=== PATIENT | female | born 1935 | race Caucasian/White ===

== ENCOUNTER 2016-08-19 14:20 | Outpatient (CLI) | payer MEDICARE, BC ==
[2016-08-19 14:35] VITALS: BP 134/81
[2016-08-19] MEDS ORDERED: GABAPENTIN300 MG ORAL (15:24)
[2016-08-19] MEDS ORDERED: HYDROCHLOROTHIA25 MG ORAL (15:24)
[2016-08-19] MEDS ORDERED: IRON325 M1 PO (15:24)
[2016-08-19] MEDS ORDERED: CELEBREX200 MG ORAL (15:24)
--- NOTE | 2016-08-19 15:30 | GI Initial Consult Note ---
History of Present Illness General Date patient seen: August 19, 2016 Time patient seen: 14:30 Referring physician: ANGEL Reason for Consultation: DILATED PANCREATIC DUCT Present Illness HPI 80 year old female patient referred by Dr. Mims for evaluation of severely dilated pancreatic duct in the distal body and tail as seen by abdominal MRI on 08/04/16. The patient presents today with no general GI symptoms at this time. She previously had N/V in July in which she visited the ER at [facility]. Home Meds Reported Medications Celecoxib* (CELEBREX*) 200 Mg Capsule, 200 MG ORAL DAILY, CAP 08/19/16 Ferrous Sulfate (IRON) Unknown Strength Tablet, PO, TAB 08/19/16 Hydrochlorothiazide* (HYDROCHLOROTHIAZIDE*) 25 Mg Tablet, 25 MG ORAL DAILY, TAB 08/19/16 Gabapentin* (GABAPENTIN*) 300 Mg Capsule, 300 MG ORAL BEDTIME, CAP 08/19/16 Med list reviewed/reconciled: Yes Allergies: Coded Allergies: No Known Allergies (Unverified , 08/19/16) Patient History History Provided By: Patient, Medical Record PMH Narrative Hx of kidney stone anemia HTN arthritis PSHx Hysterectomy Left Kidney stone removal Family History Narrative N/A Social History: Reports: other - caffeine daily Review of Systems All Other Systems: negative except mentioned in HPI Physical Exam T 97.6 BP 134/81 P 101 98 RA HT 4'7 WT 130 General Appearance: no apparent distress, alert Head: normocephalic EENT: normal ENT inspection Neck: supple Respiratory: normal breath sounds, no respiratory distress Cardiovascular: normal rate, tachycardia Gastrointestinal: normal inspection, non tender, soft Rectal: deferred Genitourinary: no CVA tenderness Musculoskeletal: other - unsteady gait Neurologic: alert, oriented x3, responsive Psychiatric: normal inspection Skin: normal inspection, normal color, no rash Lymphatic: normal inspection GI: Plan Problems: (1) Encounter for diagnostic endoscopy (2) Pancreatic duct dilated (3) Gallstones (4) Anemia (5) HTN (hypertension) (6) Arthritis Plan MRI abdomen reviewed >> severely dilated PD. Gallstones. Ventral abdominal fat -containing hernias. EGD/EUS scheduled this 08/26/16. RTC to schedule colonoscopy. Seen with Dr. Franks. Thank you for referring this patient, we will follow. Leonela Castano N.P. August 19, 2016 15:30
== END 2016-08-19 14:50 | disposition home or self-care (01) ==
LOC: PAN 14:20
DX: K80.80 Other cholelithiasis without obstruction (principal); D64.9 Anemia, unspecified; I10 Essential (primary) hypertension; M19.90 Unspecified osteoarthritis, unspecified site; K86.89 Other specified diseases of pancreas; Z87.442 Personal history of urinary calculi; Z90.710 Acquired absence of both cervix and uterus
CPT/HCPCS: 99201

== ENCOUNTER 2016-09-04 07:04 | Day surgery (SDC) | payer MEDICARE, BC ==
[~2016-09-04] VITALS: Ht 152.4 cm; Wt 59.0 kg
[2016-09-04] VITALS (8 sets, daily range): BP systolic 91–122; BP diastolic 49–73
[~2016-09-04 07:04] MED LIST: CELEBREX200 MG ORAL; GABAPENTIN300 MG ORAL; HYDROCHLOROTHIA25 MG ORAL; IRON325 M1 PO; LATANOPROST2.5 ML BOTH EYES
[2016-09-04 08:40] LABS: LYMPHOCYTES % (AUTO) 14.1 % (20.0-45.0); MEAN CORPUSCULAR HEMOGLOBIN 31.2 PG (27.0-31.0); MEAN CORPUSCULAR HGB CONC 34.2 G/DL (32.0-36.0); MEAN CORPUSCULAR VOLUME 91 FL (80-99); MEAN PLATELET VOLUME 6.3 FL (6.5-10.1); MONOCYTES % (AUTO) 9.1 % (1.0-10.0); NEUTROPHILS % (AUTO) 72.8 % (45.0-75.0); PLATELET COUNT 239 K/UL (150-450); RED BLOOD COUNT 3.78 M/UL (4.20-5.40); RED CELL DISTRIBUTION WIDTH 11.5 % (11.6-14.8); WHITE BLOOD COUNT 13.2 K/UL (4.8-10.8)
[2016-09-04 08:50] LABS: INR 1.1 (0.9-1.1); PROTHROMBIN TIME 11.1 SEC (9.30-11.50)
[2016-09-04 08:54] LABS: ALANINE AMINOTRANSFERASE 11 U/L (3-33); AMYLASE 110 U/L (10-110); ANION GAP 14 (5-15); ASPARTATE AMINO TRANSFERASE 23 U/L (5-40); CALCIUM 9.6 mg/dL (8.6-10.2); CARBON DIOXIDE 27 mEQ/L (20-30); CHLORIDE 98 mEQ/L (98-107); CREATININE 1.4 mg/dL (0.5-0.9); HEMOLYSIS 42; LIPASE 87 U/L (< 60); POTASSIUM 3.8 mEQ/L (3.4-4.9); SODIUM 139 mEQ/L (135-145); TOTAL PROTEIN 7.1 g/dL (6.6-8.7)
--- NOTE | 2016-09-04 09:06 | Pre-Procedure Note/Attestation ---
Pre-Procedure Note/Attestation Complete Prior to Procedure Planned Procedure: not applicable Procedure Narrative: eus Indications for Procedure Pre-Operative Diagnosis: pancreatic cyst Attestation I attest that I discussed the nature of the procedure; its benefits; risks and complications; and alternatives (and the risks and benefits of such alternatives ), prior to the procedure, with the patient (or the patient's legal computer help desk representative). I attest that, if there was a reasonable possibility of needing a blood transfusion, the patient (or the patient's legal computer help desk representative) was given the [facility] standardized written summary, pursuant to the Pedro Donnell Blood Safety Act ([place] Health and Safety Code # 1645, as amended). I attest that I re-evaluated the patient just prior to the surgery and that there has been no change in the patient's H&P, except as documented below: ARACELI HADDAD September 04, 2016 09:06
--- NOTE | 2016-09-04 09:07 | Short Stay Surgery H&P ---
History of Present Illness History of Present Illness Chief Complaint see recent consult note HPI Kyle Jin is a 80 year old female who was admitted on for Dilated Pancreatic Duct Patient History Allergies: Coded Allergies: No Known Allergies (Unverified , 08/19/16) PAST MEDICAL HISTORY: Past Surgeries: Social History: Medication History Scheduled Celecoxib* (Celebrex*), 200 MG ORAL DAILY, (Reported) Ferrous Sulfate (Iron), 325 MG PO NEEDED, (Reported) Gabapentin* (Gabapentin*), 300 MG ORAL BEDTIME, (Reported) Hydrochlorothiazide* (Hydrochlorothiazide*), 25 MG ORAL DAILY, (Reported) Latanoprost* (Xalatan*), 1 DROP BOTH EYES BEDTIME, (Reported) Physical Exam Vital Signs Last Vital Signs Date Time Temp Pulse Resp B/P Pulse Ox O2 Delivery O2 Flow Rate FiO2 09/04/16 07:53 98.9 98 18 122/73 99 Room Air Labs Laboratory Tests Test 09/04/16 08:11 White Blood Count 13.2 K/UL (4.8-10.8) H Red Blood Count 3.78 M/UL (4.20-5.40) L Hemoglobin 11.8 G/DL (12.0-16.0) L Hematocrit 34.5 % (37.0-47.0) L Mean Corpuscular Volume 91 FL (80-99) Mean Corpuscular Hemoglobin 31.2 PG (27.0-31.0) H Mean Corpuscular Hemoglobin Concent 34.2 G/DL (32.0-36.0) Red Cell Distribution Width 11.5 % (11.6-14.8) L Platelet Count 239 K/UL (150-450) Mean Platelet Volume 6.3 FL (6.5-10.1) L Neutrophils (%) (Auto) 72.8 % (45.0-75.0) Lymphocytes (%) (Auto) 14.1 % (20.0-45.0) L Monocytes (%) (Auto) 9.1 % (1.0-10.0) Eosinophils (%) (Auto) 3.0 % (0.0-3.0) Basophils (%) (Auto) 1.0 % (0.0-2.0) Prothrombin Time 11.1 SEC (9.30-11.50) Prothromb Time International Ratio 1.1 (0.9-1.1) Activated Partial Thromboplast Time 28 SEC (23-33) Sodium Level 139 mEQ/L (135-145) Potassium Level 3.8 mEQ/L (3.4-4.9) Chloride Level 98 mEQ/L (98-107) Carbon Dioxide Level 27 mEQ/L (20-30) Anion Gap 14 (5-15) Blood Urea Nitrogen 28 mg/dL (7-23) H Creatinine 1.4 mg/dL (0.5-0.9) H Estimat Glomerular Filtration Rate mL/min (>60) Glucose Level 100 mg/dL (74-106) Calcium Level 9.6 mg/dL (8.6-10.2) Total Bilirubin 0.3 mg/dL (0.0-1.2) Aspartate Amino Transf (AST/SGOT) 23 U/L (5-40) Alanine Aminotransferase (ALT/SGPT) 11 U/L (3-33) Alkaline Phosphatase 71 U/L (35-104) Total Protein 7.1 g/dL (6.6-8.7) Albumin 3.6 g/dL (3.5-5.2) Globulin 3.5 g/dL Albumin/Globulin Ratio 1.0 (1.0-2.7) Amylase Level 110 U/L (10-110) Lipase 87 U/L (< 60) H Carcinoembryonic Antigen Pending CA 19-9 Antigen 19.03 U/mL (< 37) Plan Attestation Are the patient's medical conditions optimized for surgery? ARACELI HADDAD September 04, 2016 09:07
[2016-09-04] MEDS ORDERED: LR 1000ml ONE (09:20)
[2016-09-04] MEDS ORDERED: Propofol 10mg/ml 20ml IV ONE (09:20)
[2016-09-04] MEDS ORDERED: LR 1000ml 1,000 ML IVLG SCH (09:41)
[2016-09-04] MEDS ORDERED: fentaNYL 100 mcg/2 mL IV PRN (09:45)
[2016-09-04] MEDS ORDERED: LR 1000ml 1,000 ML IV SCH (09:45)
--- NOTE | 2016-09-04 09:45 | Anethesia Preoperative Eval ---
Anesthesia Pre-op PMH/ROS General Date of Evaluation: September 04, 2016 Time of Evaluation: 09:10 Anesthesiologist: Sophie ASA Score: ASA 3 Mallampati Score Class I : Soft palate, uvula, fauces, pillars visible Class II: Soft palate, uvula, fauces visible Class III: Soft palate, base of uvula visible Class IV: Only hard plate visible Mallampati Classification: Class II Surgeon: Tiny Diagnosis: Dilated pancreatic duct Surgical Procedure: EGD, EUS Family History: no anesthesia problems Allergies: Coded Allergies: No Known Allergies (Unverified , 08/19/16) Past Medical History Cardiovascular: Reports: HTN Pulmonary: Denies: COPD, RENNY, asthma, other Gastrointestinal/Genitourinary: Denies: CRI, ESRD, GERD, other Neurologic/Psychiatric: Denies: CVA, TIA, dementia, depression/anxiety, other Endocrine: Denies: DM, hypothyroidism, other, steroids HEENT: Reports: cataract (L), cataract (R) Hematology/Immune: Denies: DVT, anemia, bleeding disorder, other Musculoskeletal/Integumentary: Reports: OA PMH Narrative: HTN, OA PSxH Narrative: Knee and hip surgery, ADIS, b/l cataract Anesthesia Pre-op Phys. Exam Physician Exam Last Vital Signs Date Time Temp Pulse Resp B/P Pulse Ox O2 Delivery O2 Flow Rate FiO2 09/04/16 07:53 98.9 98 18 122/73 99 Room Air Constitutional: NAD Neurologic: CN 2-12 intact Cardiovascular: RRR, no M/R/G Respiratory: CTA Gastrointestinal: S/NT/ND Airway Exam Mallampati Score: Class II MO: full ROM: full Teeth: intact Anesthesia Pre-op A/P Labs Hematology Test 09/04/16 08:11 White Blood Count 13.2 K/UL (4.8-10.8) H Red Blood Count 3.78 M/UL (4.20-5.40) L Hemoglobin 11.8 G/DL (12.0-16.0) L Hematocrit 34.5 % (37.0-47.0) L Mean Corpuscular Volume 91 FL (80-99) Mean Corpuscular Hemoglobin 31.2 PG (27.0-31.0) H Mean Corpuscular Hemoglobin Concent 34.2 G/DL (32.0-36.0) Red Cell Distribution Width 11.5 % (11.6-14.8) L Platelet Count 239 K/UL (150-450) Mean Platelet Volume 6.3 FL (6.5-10.1) L Neutrophils (%) (Auto) 72.8 % (45.0-75.0) Lymphocytes (%) (Auto) 14.1 % (20.0-45.0) L Monocytes (%) (Auto) 9.1 % (1.0-10.0) Eosinophils (%) (Auto) 3.0 % (0.0-3.0) Basophils (%) (Auto) 1.0 % (0.0-2.0) Coagulation Test 09/04/16 08:11 Prothrombin Time 11.1 SEC (9.30-11.50) Prothromb Time International Ratio 1.1 (0.9-1.1) Activated Partial Thromboplast Time 28 SEC (23-33) Chemistry Test 09/04/16 08:11 Sodium Level 139 mEQ/L (135-145) Potassium Level 3.8 mEQ/L (3.4-4.9) Chloride Level 98 mEQ/L (98-107) Carbon Dioxide Level 27 mEQ/L (20-30) Anion Gap 14 (5-15) Blood Urea Nitrogen 28 mg/dL (7-23) H Creatinine 1.4 mg/dL (0.5-0.9) H Estimat Glomerular Filtration Rate mL/min (>60) Glucose Level 100 mg/dL (74-106) Calcium Level 9.6 mg/dL (8.6-10.2) Total Bilirubin 0.3 mg/dL (0.0-1.2) Aspartate Amino Transf (AST/SGOT) 23 U/L (5-40) Alanine Aminotransferase (ALT/SGPT) 11 U/L (3-33) Alkaline Phosphatase 71 U/L (35-104) Total Protein 7.1 g/dL (6.6-8.7) Albumin 3.6 g/dL (3.5-5.2) Globulin 3.5 g/dL Albumin/Globulin Ratio 1.0 (1.0-2.7) Amylase Level 110 U/L (10-110) Lipase 87 U/L (< 60) H Carcinoembryonic Antigen Pending CA 19-9 Antigen 19.03 U/mL (< 37) Studies Pre-op Studies: EKG - RBBB, SR Risk Assessment & Plan Assessment: Dilated pancreatic duct Plan: GA, TIVA Status Change Before Surgery: No Pre-Antibiotics Drug: None ROBERT MUÑOZ M.D. September 04, 2016 09:45
--- NOTE | 2016-09-04 09:46 | Immediate Post-Op Evaluation ---
Immediate Post-Op Evalulation Immediate Post-Op Evalulation Procedure: EUS Date of Evaluation: September 04, 2016 Time of Evaluation: 10:05 IV Fluids: 400 Blood Pressure Systolic: 95 Blood Pressure Diastolic: 52 Pulse Rate: 87 Respiratory Rate: 22 O2 Sat by Pulse Oximetry: 100 Temperature (Fahrenheit): 97.0 Pain Score (1-10): 0 Nausea: No Vomiting: No Complications No complication Patient Status: awake, patent, none Hydration Status: adequate Drug: None ROBERT MUÑOZ M.D. September 04, 2016 09:46
--- NOTE | 2016-09-04 10:05 | Endoscopy Procedure Note ---
Endoscopy Procedure Note Indication for Procedure: pancreatic cyst Procedures Performed: other - EUS Operative Findings/Diagnosis: same Specimen: none Pt Tolerated Procedure Well: Yes Estimated Blood Loss: none Anesthesiologist: laverne Anesthesia: MAC Implant(s) used?: No 50 yrs or older w/o bx or poly: Not Applicable 10yrs. F/U not recommended: Not Applicable ARACELI HADDAD September 04, 2016 10:05
--- NOTE | 2016-09-04 10:05 | 48 Hour Post Anesthesia Eval ---
Post Anesthesia Evaluation Procedure: EUS Date of Evaluation: September 04, 2016 Time of Evaluation: 10:30 Blood Pressure Systolic: 100 0: 59 Pulse Rate: 83 Respiratory Rate: 18 O2 Sat by Pulse Oximetry: 99 Airway: patent Nausea: No Vomiting: No Pain Intensity: 0 Hydration Status: adequate Cardiopulmonary Status: Stable Mental Status/LOC: patient returned to baseline Follow-up Care/Observations: As per surgery Post-Anesthesia Complications: No anesthetic complication Follow-up care needed: N/A ROBERT MUÑOZ M.D. September 04, 2016 10:05
--- NOTE | 2016-09-04 16:38 | Cardiology Report ---
APPROVED REPORT EKG Measurement Heart [id number] [id number] Normal sinus rhythm Right bundle branch block Abnormal ECG
--- NOTE | 2016-09-04 21:30 | Procedure Note ---
DATE OF PROCEDURE: 09/04/2016 SURGEON: Archie Franks M.D. PROCEDURE: Endoscopic ultrasound. ANESTHESIOLOGIST: Pedro Barrios M.D. INSTRUMENT: Olympus adult EUS scope. INDICATION: Dilated pancreatic cyst based on MRI. REASON FOR PROCEDURE: The procedure, risks, benefits, and possible consequences, including hemorrhage, aspiration, perforation and infection, and alternative treatments, were explained to the patient/legal guardian by Dr. Archie Franks and the patient/legal guardian understood and accepted these risks. DESCRIPTION OF PROCEDURE: After informed consent was obtained and the patient was adequately sedated, EUS scope was advanced from mouth into the second portion of the duodenum and pancreatic parenchyma was carefully examined through the gastroduodenal mucosa. Starting scanning at GE junction, the patient had evidence of normal celiac axis without any obvious lymphadenopathy. The patient had mildly atrophic pancreas, especially in the body and tail. There was a large stone sitting in the pancreatic duct, in the body of the pancreas. The stone measured roughly about 2 cm and there was a proximal dilation of pancreatic duct to about 7 mm from the stone. As we follow the pancreatic duct to the tail, the duct is persistently dilated, even the side branches become dilated and there were other more stones and calcifications in those ducts. Most probably this is what they saw on an MRI. They thought it was cystic mass, but this seems that it is mostly dilated pancreatic duct with stones and calcifications in it. There was no obvious mass seen at this time. Then, the scope was advanced to the duodenal bulb and second portion of the duodenum. The gallbladder was seen with multiple stones in it. The common bile duct was seen. Common bile duct was not dilated and there was no stone in the common bile duct. Common bile duct measured roughly about 4 mm at the ampulla and about 5 mm in the mid common bile duct. Pancreatic duct was normal in the head. There was no pancreatic duct dilatation at the head. No evidence of obvious severe pancreatitis. The patient tolerated the procedure very well without any complication. SUMMARY OF FINDINGS: 1. Large stone about 2 cm in the mid body of the pancreas causing pancreatic duct narrowing and obstruction with proximal dilation of pancreatic duct to about 7 mm in the body and tail. Multiple side branch dilatation of the pancreatic duct throughout the body and tail with multiple stones and calcifications throughout. No obvious mass was seen. 2. Gallstones. RECOMMENDATIONS: I discussed the case with the surgeon, Dr. Mims. This is an 80-year-old female, nonalcoholic with stones and calcifications in the pancreatic duct with pancreatic duct dilatation. Plan will be that if the patient becomes symptomatic from this, then options would be either an endoscopic retrograde cholangiopancreatography and trying to put the stent through the stone for drainage of the pancreatic duct. Other option would be to send the patient to surgery for partial pancreatectomy given the head of the pancreas looks normal and the pancreatic duct is not dilated in the head and the other option will be just trial of the Creon if the patient becomes symptomatic. So, we will have the patient follow up in the office. We will go over the options with her and see what she wants to do. I want to thank, Dr. Mims, for this kind referral. Archie Franks M.D. DR: NICOLE JOB#: [id number] CC: Toñito Mims M.D.; Fax#: [phone]
== END 2016-09-04 11:55 | disposition home or self-care (01) ==
LOC: GAS 07:04
DX: K86.89 Other specified diseases of pancreas (principal); K80.80 Other cholelithiasis without obstruction; I10 Essential (primary) hypertension; M19.90 Unspecified osteoarthritis, unspecified site; Z90.710 Acquired absence of both cervix and uterus
CPT/HCPCS: 36415; 43237; 80053; 82150; 82378; 83690; 85025; 85610; 85730; 86301; 93005; J2704; J7120; 94003; 94150

== ENCOUNTER 2016-09-11 13:09 | Outpatient (CLI) | payer MEDICARE, BC ==
--- NOTE | 2016-09-11 14:45 | GI Progress Note ---
Assessment/Plan Problems: (1) Gallstones ICD Codes: K80.20 - Calculus of gallbladder without cholecystitis without obstruction SNOMED: 378612359 (2) Pancreatic duct dilated ICD Codes: K86.89 - Other specified diseases of pancreas SNOMED: 918576155 (3) Encounter for diagnostic endoscopy ICD Codes: Z01.818 - Encounter for other preprocedural examination SNOMED: 979915410, 420332562 (4) HTN (hypertension) ICD Codes: I10 - Essential (primary) hypertension SNOMED: 45640794 (5) Anemia ICD Codes: D64.9 - Anemia, unspecified SNOMED: 383206882 Status: stable Status Narrative Seen with Dr. Franks. Assessment/Plan SUMMARY OF FINDINGS: 1. Large stone about 2 cm in the mid body of the pancreas causing pancreatic duct narrowing and obstruction with proximal dilation of pancreatic duct to about 7 mm in the body and tail. Multiple side branch dilatation of the pancreatic duct throughout the body and tail with multiple stones and calcifications throughout. No obvious mass was seen. 2. Gallstones. RECOMMENDATIONS: surgical follow up with Dr. Harris consider ERCP is symptomatic to try and put the stent through the stone for drainage of the pancreatic duct. Other option would be to send the patient to surgery for partial pancreatectomy given the head of the pancreas looks normal and the pancreatic duct is not dilated in the head. Other option will be just trial of the Creon if the patient becomes symptomatic. Subjective Subjective abdominal pain appetite loss Objective T 98.0 BP 168/68 P 93 100 RA Denies weight loss General Appearance: no apparent distress, alert Cardiovascular: normal rate Respiratory/Chest: normal breath sounds, no respiratory distress Abdominal Exam: normal bowel sounds, non tender, soft Extremities: normal range of motion Leonela Castano NBriseida Sep 11, 2016 14:45
== END 2016-09-11 13:50 | disposition home or self-care (01) ==
LOC: PAN 13:09
DX: Z01.818 Encounter for other preprocedural examination (principal); K80.20 Calculus of gallbladder without cholecystitis without obstruction; K86.89 Other specified diseases of pancreas; I10 Essential (primary) hypertension; D64.9 Anemia, unspecified
CPT/HCPCS: 99211